=== PATIENT | male | born 2000 | race American Indian/Alaskan Native ===

== ENCOUNTER 2019-03-09 22:16 | Emergency (ER) | payer OTHER ==
--- NOTE | 2019-03-09 22:35 | Emergency Department Report ---
Blank Doc - Documentation Documentation: This is a 19-year-old male that presents with chest tightness with some SOB. This initial assessment/diagnostic orders/clinical plan/treatment(s) is/are subject to change based on patient's health status, clinical progression and re- assessment by fellow clinical providers in the ED. Further treatment and workup at subsequent clinical providers discretion. Patient/guardians urged not to elope from the ED as their condition may be serious if not clinically assessed and managed. Initial orders include: 1- Patient sent to [facility] for further evaluation and treatment 2- labs 3- EKG 4- CXR
[2019-03-09 23:02] LABS: Basophils # (Auto) 0.2 K/mm3 (0.0-0.1); Eosinophils # (Auto) 0.2 K/mm3 (0.0-0.4); Eosinophils % (Auto) 2.5 % (0.0-4.3); Monocytes # (Auto) 0.8 K/mm3 (0.0-0.8); Monocytes % (Auto) 8.3 % (0.0-7.3)
[2019-03-09 23:23] LABS: BUN/Creatinine Ratio 8; Blood Urea Nitrogen 10 mg/dL (9-20); Calcium 9.5 mg/dL (8.4-10.2); Hemolysis Index 14
[2019-03-09 23:40] LABS: Basophils % (Auto) 0.8 % (0.0-1.8); Lymphocytes # (Auto) 2.1 K/mm3 (1.2-5.4); Lymphocytes % (Auto) 21.3 % (13.4-35.0); Mean Corpuscular HGB Conc 36 % (32-34); Mean Corpuscular Volume 80 fl (84-94); Platelet Count 281 K/mm3 (140-440); Red Cell Distribution Width 13.3 % (13.2-15.2)
[2019-03-09 23:41] LABS: Hematocrit 46.9 % (35.5-45.6); Hemoglobin 16.7 gm/dl (11.8-15.2)
--- NOTE | 2019-03-10 03:11 | Emergency Department Report ---
ED General Adult HPI - General Chief complaint: Chest Pain Stated complaint: FAST HEART BEAT Time Seen by Provider: 03/09/19 22:33 Source: patient Mode of arrival: Ambulatory Limitations: No Limitations - History of Present Illness Initial comments: Patient is a 19-year-old, male with no past medical history presents to the ED with complaint of limited blood pressure for the last 6 hours. Patient denies fever, chills, cough, chest pain, shortness of breath, palpitations, dizziness, headache, nausea, vomiting, abdominal pain, diaphoresis or back pain. MD Complaint: Elevated BP -: Sudden, hour(s) (6) Radiation: non-radiation Severity scale (0 -10): 0 Quality: dull Improves with: none Worsens with: none Associated Symptoms: denies other symptoms. denies: confusion, chest pain, cough, diaphoresis, fever/chills, headaches, loss of appetite, malaise, nausea/vomiting, rash, shortness of breath, syncope Treatments Prior to Arrival: none - Related Data Allergies Allergy/AdvReac Type Severity Reaction Status Date / Time No Known Allergies Allergy Unverified 03/09/19 22:28 ED Review of Systems ROS: Stated complaint: FAST HEART BEAT Other details as noted in HPI Constitutional: denies: chills, fever Eyes: denies: eye pain, eye discharge, vision change ENT: denies: ear pain, throat pain Respiratory: denies: cough, shortness of breath, wheezing Cardiovascular: other (elevated BP). denies: chest pain, palpitations Endocrine: no symptoms reported Gastrointestinal: denies: abdominal pain, nausea, diarrhea Genitourinary: denies: urgency, dysuria Musculoskeletal: denies: back pain, joint swelling, arthralgia Skin: denies: rash, lesions Neurological: denies: headache, weakness, paresthesias Psychiatric: denies: anxiety, depression Hematological/Lymphatic: denies: easy bleeding, easy bruising ED Past Medical Hx - Past Medical History Previous Medical History?: No - Surgical History Past Surgical History?: No - Social History Smoking Status: Never Smoker ED Physical Exam - General Limitations: No Limitations General appearance: alert, in no apparent distress - Head Head exam: Present: atraumatic, normocephalic, normal inspection - Eye Eye exam: Present: normal appearance, PERRL, EOMI. Absent: scleral icterus, conjunctival injection, nystagmus Pupils: Present: normal accommodation - ENT ENT exam: Present: normal exam, normal orophraynx, mucous membranes moist, TM's normal bilaterally, normal external ear exam - Neck Neck exam: Present: normal inspection - Respiratory Respiratory exam: Present: normal lung sounds bilaterally. Absent: respiratory distress, wheezes, rales, chest wall tenderness, accessory muscle use, decreased breath sounds - Cardiovascular Cardiovascular Exam: Present: regular rate, normal rhythm, normal heart sounds. Absent: systolic murmur, diastolic murmur, rubs, gallop - GI/Abdominal GI/Abdominal exam: Present: soft, normal bowel sounds. Absent: distended, tenderness, guarding, hyperactive bowel sounds, hypoactive bowel sounds - Rectal Rectal exam: Present: deferred - Extremities Exam Extremities exam: Present: normal inspection, full ROM, normal capillary refill - Back Exam Back exam: Present: normal inspection, full ROM. Absent: tenderness, CVA tenderness (R), CVA tenderness (L), muscle spasm, paraspinal tenderness, vertebral tenderness - Neurological Exam Neurological exam: Present: alert, oriented X3, CN II-XII intact, normal gait, reflexes normal - Psychiatric Psychiatric exam: Present: normal affect, normal mood - Skin Skin exam: Present: warm, dry, intact, normal color. Absent: rash ED Course Vital Signs 03/09/19 03/10/19 22:35 04:56 Temperature 98.0 F Pulse Rate 87 64 Respiratory 18 18 Rate Blood Pressure 157/102 Blood Pressure 147/89 [Left] O2 Sat by Pulse 97 99 Oximetry - Reevaluation(s) Reevaluation #1: 03/10/19 03:12 This is a 19-year-old AA male presented to the ED with elevated blood pressure. Patient has not taken her blood pressure medications at home. Patient has never been diagnosed with hypertension. In the ED, patient is hypertensive, alert and oriented 3 and is not in distress. Lab test results were reviewed and are unremarkable. EKG shows normal sinus rhythm with ventricular rate [address] or T-wave abnormality or pathological Q waves. On reevaluation, patient denies chest pain, shortness of breath, diaphoresis, headache or dizziness, numbness and tingling in upper and lower extremities bilaterally. Chest x-ray shows no acute cardiopulmonary abnormalities. Patient was discharged home and advised to follow-up with his primary care physician in 7-10 days. Patient was advised to eat appropriate diet, avoid salty foods, daily physical exercise to maintain a normal blood pressure. Patient was advised to return to the ED immediately if symptoms get worse. ED Medical Decision Making - Lab Data Result diagrams: 03/09/19 22:48 03/09/19 22:48 - EKG Data EKG shows normal: sinus rhythm Rate: normal - EKG Data Interpretation: normal EKG 03/10/19 03:15 Normal sinus rhythm, ventricular rate of 73 bpm, no ST or T-wave abnormalities. - Radiology Data Chest x-ray shows no acute cardiopulmonary abnormalities - Medical Decision Making This is a 19-year-old AA male presented to the ED with elevated blood pressure. Patient has not taken her blood pressure medications at home. Patient has never been diagnosed with hypertension. In the ED, patient is hypertensive, alert and oriented 3 and is not in distress. Lab test results were reviewed and are unremarkable. EKG shows normal sinus rhythm with ventricular rate [address] or T-wave abnormality or pathological Q waves. On reevaluation, patient denies chest pain, shortness of breath, diaphoresis, headache or dizzin ess, numbness and tingling in upper and lower extremities bilaterally. Chest x- ray shows no acute cardiopulmonary abnormalities. Patient was discharged home and advised to follow-up with his primary care physician in 7-10 days. Patient was advised to eat appropriate diet, avoid salty foods, daily physical exercise to maintain a normal blood pressure. Patient was advised to return to the ED immediately if symptoms get worse. - Differential Diagnosis Uncontrolled HTN Critical care attestation.: If time is entered above; I have spent that time in minutes in the direct care of this critically ill patient, excluding procedure time. ED Disposition Clinical Impression: Uncontrolled hypertension, stage 1 Disposition: DC-01 TO HOME OR SELFCARE Is pt being admited?: No Does the pt Need Aspirin: No Condition: Stable Instructions: Hypertension (ED) Additional Instructions: Control your Blood pressure with proper diet and exercise, avoid very salty diets. Follow up with your Primary Care Physician as advised. Return to the ED immediately if symptoms get worse Referrals: [facility] [Outside] - 3-5 Days Time of Disposition: 03:20 Print Language: EQUATORIAL GUINEAN
[2019-03-10 04:56] VITALS: BP 147/89
--- NOTE | 2019-03-12 13:42 | XRay Report ---
CHEST 2 VIEWS INDICATION: sob. COMPARISON: None FINDINGS: Support devices: None. Heart: Within normal limits. Lungs/pleura: No acute air space or interstitial disease. No pneumothorax. Additional findings: None. IMPRESSION: 1. No acute findings. Signer Name: Akhil Looney MD Signed: 03/10/2019 5:33 AM Workstation Name: [id number]
== END 2019-03-10 05:54 | disposition home or self-care (01) ==
LOC: ED 22:16
DX: I16.0 Hypertensive urgency (principal)
CPT/HCPCS: 36415; 71046; 80048; 84484; 85025; 93005; 93010; 99283

== ENCOUNTER 2019-03-11 10:53 | Emergency (ER) | payer OTHER ==
[2019-03-11] MEDS ORDERED: NACL 0.9% 1000 ML 1,000 ML IV ONE (11:33)
[2019-03-11] MEDS ORDERED: ANTIVERT PO ONE (11:33)
[2019-03-11 11:54] LABS: Basophils # (Auto) 0.1 K/mm3 (0.0-0.1); Basophils % (Auto) 1.4 % (0.0-1.8); Eosinophils # (Auto) 0.2 K/mm3 (0.0-0.4); Eosinophils % (Auto) 2.2 % (0.0-4.3); Hemoglobin 17.1 gm/dl (11.8-15.2); Lymphocytes # (Auto) 1.7 K/mm3 (1.2-5.4); Lymphocytes % (Auto) 23.8 % (13.4-35.0); Mean Corpuscular HGB Conc 36 % (32-34); Mean Corpuscular Volume 79 fl (84-94); Monocytes # (Auto) 0.7 K/mm3 (0.0-0.8); Monocytes % (Auto) 9.5 % (0.0-7.3); Platelet Count 286 K/mm3 (140-440); Red Blood Count 6.08 M/mm3 (3.65-5.03); Red Cell Distribution Width 13.5 % (13.2-15.2)
[2019-03-11 11:55] LABS: Hematocrit 48.3 % (35.5-45.6)
[2019-03-11 11:57] LABS: BUN/Creatinine Ratio 11; Blood Urea Nitrogen 14 mg/dL (9-20); Calcium 9.6 mg/dL (8.4-10.2); Hemolysis Index 7
--- NOTE | 2019-03-11 12:18 | Cat Scan Report ---
CT head/brain wo con INDICATION / CLINICAL INFORMATION: 19 years Male; headache with dizziness. TECHNIQUE: Routine CT head without contrast. All CT scans at this location are performed using CT dos e reduction for ALARA by means of automated exposure control. COMPARISON: None. FINDINGS: BRAIN / INTRACRANIAL CONTENTS: No acute hemorrhage, mass effect, midline shift, hydrocephalus, or acu te, large territorial infarct. No chronic infarct or focal atrophy. Normal brain volume and ventricul ar/sulcal size for age. No significant white matter abnormality. CRANIOCERVICAL JUNCTION: No significant abnormality. ORBITS: No significant abnormality of visualized orbits. SINUSES / MASTOIDS: No significant abnormality of the visualized paranasal sinuses or mastoid air allison ls. ADDITIONAL FINDINGS: None. IMPRESSION: 1. No focal mass, hemorrhage, hydrocephalus, or acute, large territorial infarct. Signer Name: Phani Myers MD, III Signed: 03/11/2019 12:14 PM Workstation Name: [id number]
[2019-03-11] MEDS ORDERED: BENADRYL IV ONE (13:03)
[2019-03-11] MEDS ORDERED: TORADOL IV ONE (13:03)
[2019-03-11] MEDS ORDERED: REGLAN IV ONE (13:03)
--- NOTE | 2019-03-11 13:09 | Emergency Department Report ---
ED Headache HPI - General Chief Complaint: Headache Stated Complaint: DIZZY/NAUSEA Time Seen by Provider: 03/11/19 11:10 - History of Present Illness Initial Comments: This is a 19-year-old male nontoxic, well nourished in appearance, no acute signs of distress presents to the ED with c/o of intermittent headaches and dizziness. Patient describes headache as diffuse with level of 3 out of 10. Patient denies thunderclap headache. Patient denies any radiation of pain. Patient denies any head trauma. Patient denies any visual changes. Patient denies worse headache. Patient stated that darkness makes headache better and bright lights make the headache worse. Patient denies any numbness, tingling, fever, chills, nausea, vomiting, chest pain, shortness of breath, stiff neck. Patient denies facial drooping or one sided weakness. Patient denies any radiation of pain. Patient denies any allergies. Quality: mild, achy Head Injury Location: other (diffuse) Recent Head Trauma: no recent headache/trauma Associated Symptoms: denies symptoms. denies: confusion, fatigue, facial pain, fever/chills, flushing, loss of consciousness, nausea/vomiting, nasal congestion, nasal drainage, numbness in legs/feet, rash, seizures, sinus infection, stiff neck, vision changes, weakness Allergies/Adverse Reactions: Allergies No Known Allergies Allergy (Unverified 03/09/19 22:28) Home Medications: Ambulatory Orders Meclizine [Antivert] 12.5 mg PO BID PRN #12 tablet 03/11/19 ED Review of Systems ROS: Stated complaint: DIZZY/NAUSEA Other details as noted in HPI Constitutional: denies: chills, fever Eyes: denies: eye pain, eye discharge, vision change ENT: denies: ear pain, throat pain Respiratory: denies: cough, shortness of breath, wheezing Cardiovascular: denies: chest pain, palpitations Endocrine: no symptoms reported Gastrointestinal: denies: abdominal pain, nausea, diarrhea Genitourinary: denies: urgency, dysuria Musculoskeletal: denies: back pain, joint swelling, arthralgia Skin: denies: rash, lesions Neurological: headache, vertigo. denies: weakness, paresthesias Psychiatric: denies: anxiety, depression Hematological/Lymphatic: denies: easy bleeding, easy bruising ED Past Medical Hx - Past Medical History Previous Medical History?: No - Surgical History Past Surgical History?: No - Social History Smoking Status: Never Smoker Substance Use Type: Alcohol - Medications Home Medications: Home Medications Medication Instructions Recorded Confirmed Last Taken Type Meclizine [Antivert] 12.5 mg PO BID PRN #12 tablet 03/11/19 Unknown Rx ED Physical Exam - General Limitations: No Limitations General appearance: alert, in no apparent distress - Head Head exam: Present: atraumatic, normocephalic - Eye Eye exam: Present: normal appearance, PERRL, EOMI - Neck Neck exam: Present: normal inspection, full ROM. Absent: tenderness, meningismus, lymphadenopathy - Rectal Rectal exam: Present: deferred - Extremities Exam Extremities exam: Present: normal inspection, full ROM - Back Exam Back exam: Present: normal inspection, full ROM. Absent: tenderness, CVA tenderness (R), CVA tenderness (L), muscle spasm, paraspinal tenderness, vertebral tenderness, rash noted - Neurological Exam Neurological exam: Present: alert, oriented X3, normal gait - Expanded Neurological Exam Expanded Patient oriented to: Present: person, place, time Cranial nerves: EOM's Intact: Normal, Facial Sensation: Normal Cerebellar function: Finger to Nose: Normal Upper motor neuron: Pronator Drift: Normal, Sensory Extinction: Normal Motor strength exam: RUE: 5, LUE: 5, RLE: 5, LLE: 5 Best Eye Response (Lenny): (4) open spontaneously Best Motor Response ([place]): (6) obeys commands Best Verbal Response ([place]): (5) oriented Lenny Total: 15 - Psychiatric Psychiatric exam: Present: normal affect, normal mood - Skin Skin exam: Present: warm, dry, intact, normal color. Absent: rash ED Course Vital Signs 03/11/19 03/11/19 03/11/19 11:00 12:18 12:34 Temperature 98.3 F 98.1 F Pulse Rate 78 69 Pulse Rate [ 75 Sitting] Respiratory 18 20 Rate Blood Pressure 144/95 Blood Pressure 168/79 [Right] Blood Pressure 131/79 [Sitting] O2 Sat by Pulse 97 100 Oximetry - Reevaluation(s) Reevaluation #1: 03/11/19 13:08 Patient is speaking in full sentences with no signs of distress noted. ED Medical Decision Making - Lab Data Result diagrams: 03/11/19 11:29 03/11/19 11:29 - Medical Decision Making This is a 19-year-old male that presents with headache and dizziness. Patient is stable and was examined by me. Labs unremarkable. CT scan is unremarkable and dictated by the radiologist. Patient is notifeid of the CT results with no questions noted by the patient. Patient is neurologically stable. There is no stiff neck or neck pain. Vital signs are stable. Patient is afebrile. Patient received Antivert, Benadryl, Reglan, Toradol, and 1 L of normal saline which the patient stated that headache has subsided and resolved. Patient was instructed not to operate any machinery after discharged due to drowsiness of Benadryl. Patient stated that a family member will drive patient home. Patient is discharged with Fioricet. Patient was referred to Follow-up with a primary care/neurologist doctor in 3-5 days or if symptoms worsen and continue return to emergency room as soon as possible. At time of discharge, the patient does not seem toxic or ill in appearance. No acute signs of distress noted. Patient agrees to discharge treatment plan of care. No further questions noted by the patient. Critical care attestation.: If time is entered above; I have spent that time in minutes in the direct care of this critically ill patient, excluding procedure time. ED Disposition Clinical Impression: Dizziness Headache Qualifiers: Headache type: unspecified Headache chronicity pattern: acute headache Intractability: not intractable Qualified Code(s): R51 - Headache Disposition: DC-01 TO HOME OR SELFCARE Is pt being admited?: No Does the pt Need Aspirin: No Condition: Stable Instructions: Acute Headache (ED), Dizziness (ED), Meclizine (By mouth) Additional Instructions: Follow-up with a primary care and neurologist doctor in 3-5 days or if symptoms worsen and continue return to emergency room as soon as possible. Prescriptions: Meclizine [Antivert] 12.5 mg PO BID PRN #12 tablet PRN Reason: Vertigo Referrals: SONYA MUÑOZ MD [Primary Care Provider] - 3-5 Days PRIMARY CAREMD [Referring] - 3-5 Days PATRICIA JACOBS MD [Staff Physician] - 3-5 Days YOSVANY WASHINGTON MD [Staff Physician] - 3-5 Days [facility] [place] [Outside] - 3-5 Days [facility] [Outside] - 3-5 Days Forms: Work/School Release Form(ED)
[2019-03-11 14:45] VITALS: BP 149/82
== END 2019-03-11 14:45 | disposition home or self-care (01) ==
LOC: ED 10:53
DX: R51 Headache (principal); R42 Dizziness and giddiness; Z79.899 Other long term (current) drug therapy
CPT/HCPCS: 36415; 70450; 80048; 85025; 96361; 96374; 96375; 99284; J1200; J1885; J2765; J7030